=== PATIENT | female | born 1975 | race American Indian/Alaskan Native ===

== ENCOUNTER 2017-08-20 17:41 | Emergency (ER) | payer SELFPAY ==
[2017-08-20 17:48] VITALS: BP 116/66
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
== END 2017-08-20 22:52 | disposition home or self-care (01) ==
LOC: ED 17:41
DX: B34.9 Viral infection, unspecified (principal); J06.9 Acute upper respiratory infection, unspecified
CPT/HCPCS: 87116; 87400; 87430; 99282